=== PATIENT | male | born 1975 | race African-American/Black ===

== ENCOUNTER 2018-01-03 01:52 | Inpatient (IN) | payer OTHER ==
[~2018-01-03] VITALS: Ht 180.3 cm; Wt 84.8 kg
[2018-01-03 02:45] LABS: CALCIUM, SERUM 7.7 mg/dL (8.5-10.1); POTASSIUM 3.3 mmol/L (3.5-5.1)
[2018-01-03 02:53] LABS: TROPONIN I 0.041 ng/mL (0.00-0.056)
[2018-01-03 03:17] LABS: BASOPHILS # (AUTO) 0.1 /CMM (0.0-0.2); EOSINOPHILS % (AUTO) 2.6 % (0.0-6.0); HEMATOCRIT 45 % (39-51); LYMPHOCYTES # (AUTO) 2.1 /CMM (0.8-4.8); LYMPHOCYTES % (AUTO) 40.4 % (20.0-44.0); MEAN CORPUSCULAR HEMOGLOBIN 26 PG (26.0-33.0); MEAN CORPUSCULAR HGB CONC 31 g/dl (31.0-36.0); MEAN CORPUSCULAR VOLUME 83 fL (80-96); MONOCYTES # (AUTO) 1.1 /CMM (0.1-1.30); NEUTROPHILS # (AUTO) 1.8 /CMM (1.8-8.9); PLATELET COUNT (AUTO) 184 /CMM (150-450); RED BLOOD CELL COUNT(AUTO) 5.48 MIL/uL (4.5-6.0); WHITE BLOOD COUNT (AUTO) 5.2 K/uL (4.3-11.0)
[2018-01-03 03:51] LABS: LYMPHOCYTES % (MANUAL) 48 % (16-48); MONOCYTES % (MANUAL) 15 % (0-11.0); NEUTROPHILS % (MANUAL) 34 (42-76)
[2018-01-03 03:52] LABS: EOSINOPHILS % (MANUAL) 3 % (0-4)
[2018-01-03] MEDS ORDERED: FUROSEMIDE 40 MG/4 ML VIAL ONE (04:58)
[2018-01-03] MEDS ORDERED: FUROSEMIDE 40 MG/4 ML VIAL IV ONE (05:00)
[2018-01-03] MEDS ORDERED: ASPIRIN EC 325 MG TABLET.DR PO ONE ×2 (05:30)
[2018-01-03] MEDS ORDERED: CARV3.122 PO (05:42)
[2018-01-03] MEDS ORDERED: SPIR25TA6 PO (05:42)
[2018-01-03] MEDS ORDERED: LORA1TAB PO (05:42)
[2018-01-03] MEDS ORDERED: FURO-144 PO (05:42)
[2018-01-03] MEDS ORDERED: LISI10TA5 PO (05:42)
[2018-01-03] MEDS ORDERED: GABA-534 PO (05:42)
[2018-01-03] MEDS ORDERED: MAGNESIUM HYDROXIDE 30 ML UDC PO PRN (06:30)
[2018-01-03] MEDS ORDERED: MORPHINE SULFATE INJ 2 MG/ML DISP.SYRIN IV PRN (06:30)
[2018-01-03] MEDS ORDERED: LORAZEPAM 1 MG TABLET PO PRN (06:30)
[2018-01-03] MEDS ORDERED: Z GUARD REMEDY 2 OZ OINT TP PRN (06:30)
[2018-01-03] MEDS ORDERED: POTASSIUM CHLORIDE 20 MEQ TAB.PRT.SR PO ONE ×2 (06:30→08:00)
[2018-01-03] MEDS ORDERED: ONDANSETRON HCL/PF 4 MG/2 ML VIAL IVP PRN (06:30)
[2018-01-03] MEDS ORDERED: ZOLPIDEM TARTRATE 5 MG TABLET PO PRN (06:30)
[2018-01-03] MEDS ORDERED: ACETAMINOPHEN 325 MG TABLET PO PRN (06:30)
[2018-01-03] MEDS ORDERED: ENOXAPARIN SODIUM 40 MG/0.4 ML DISP.SYRIN SQ SCH (06:30)
[2018-01-03 07:05] VITALS: BP 103/69
[2018-01-03 08:00] VITALS: BP 99/66
[2018-01-03] MEDS ORDERED: BUMETANIDE INJ 4 MG in IV NS 0.9% 24 ML IV ONE (08:00)
[2018-01-03] MEDS: ENOXAPARIN SODIUM 40 MG/0.4 ML DISP.SYRIN SQ SCH (08:28)
[2018-01-03] MEDS: CARVEDILOL 3.125 MG TABLET PO SCH ×2 (08:29→20:30)
[2018-01-03] MEDS: SPIRONOLACTONE 25 MG TABLET PO SCH (08:30)
[2018-01-03] MEDS: LISINOPRIL (10MG) 10 MG TABLET PO SCH (08:30)
[2018-01-03] MEDS: FUROSEMIDE 40 MG TABLET PO SCH ×2 (08:30→16:51)
[2018-01-03] MEDS ORDERED: ASPIRIN EC 325 MG TABLET.DR PO SCH (09:00)
[2018-01-03 12:00] VITALS: BP 118/69
[2018-01-03] MEDS: MORPHINE SULFATE INJ 4 MG/ML DISP.SYRIN IV PRN ×3 (15:29→22:15)
[2018-01-03 16:00] VITALS: BP 108/73
[2018-01-03 16:38] LABS: APPEARANCE,URINE CLEAR (CLEAR); BILIRUBIN,URINE NEGATIVE (NEGATIVE); BLOOD, URINE NEGATIVE Ery/uL (NEGATIVE); COLOR,URINE YELLOW (YELLOW); KETONES,URINE NEGATIVE (NEGATIVE); LEUKOCYTE ESTERASE ,URINE NEGATIVE (NEGATIVE); NITRITE, URINE NEGATIVE (NEGATIVE); PROTEIN,URINE NEGATIVE (NEGATIVE); UGLUCOSE NEGATIVE (NEGATIVE)
[2018-01-03 20:00] VITALS: BP 108/67
[2018-01-03 20:15] VITALS: BP 108/67
[2018-01-03] MEDS: GABAPENTIN 300 MG CAPSULE PO SCH (22:20)
[2018-01-04 00:14] VITALS: BP 111/69
[2018-01-04] MEDS: MORPHINE SULFATE INJ 4 MG/ML DISP.SYRIN IV PRN ×4 (00:41→20:29)
[2018-01-04 04:00] VITALS: BP 115/85
[2018-01-04 06:30] LABS: BASOPHILS % (AUTO) 0.7 % (0.0-2.0); EOSINOPHILS % (AUTO) 4.3 % (0.0-6.0); HEMATOCRIT 46 % (39-51); HEMOGLOBIN 14.2 g/dL (13.5-17.5); LYMPHOCYTES # (AUTO) 1.9 /CMM (0.8-4.8); LYMPHOCYTES % (AUTO) 34.6 % (20.0-44.0); MEAN CORPUSCULAR HEMOGLOBIN 26 PG (26.0-33.0); MEAN CORPUSCULAR HGB CONC 31 g/dl (31.0-36.0); MEAN CORPUSCULAR VOLUME 85 fL (80-96); MONOCYTES # (AUTO) 1.1 /CMM (0.1-1.30); NEUTROPHILS # (AUTO) 2.3 /CMM (1.8-8.9); NEUTROPHILS % (AUTO) 41.4 % (43.0-81.0); PLATELET COUNT (AUTO) 184 /CMM (150-450); RDW COEFFICIENT OF VARIATION 19.6 (11.5-15.0); RED BLOOD CELL COUNT(AUTO) 5.45 MIL/uL (4.5-6.0); WHITE BLOOD COUNT (AUTO) 5.6 K/uL (4.3-11.0)
[2018-01-04 06:37] LABS: CALCIUM, SERUM 8.1 mg/dL (8.5-10.1); CREATININE 0.8 mg/dL (0.6-1.3); MAGNESIUM 1.8 mg/dL (1.8-2.4); PHOSPHORUS 4.6 mg/dL (2.5-4.9); POTASSIUM 4.2 mmol/L (3.5-5.1)
[2018-01-04 08:00] VITALS: BP 111/73
[2018-01-04] MEDS: ENOXAPARIN SODIUM 40 MG/0.4 ML DISP.SYRIN SQ SCH (08:39)
[2018-01-04] MEDS: SPIRONOLACTONE 25 MG TABLET PO SCH (08:40)
[2018-01-04] MEDS: CARVEDILOL 3.125 MG TABLET PO SCH ×2 (08:40→21:00)
[2018-01-04] MEDS: LISINOPRIL (10MG) 10 MG TABLET PO SCH ×2 (08:40→09:00)
[2018-01-04] MEDS: FUROSEMIDE 40 MG TABLET PO SCH ×2 (08:40→16:10)
[2018-01-04] MEDS: ASPIRIN EC 81 MG TABLET.DR PO SCH (08:41)
[2018-01-04 09:35] LABS: EOSINOPHILS % (MANUAL) 2 % (0-4); LYMPHOCYTES % (MANUAL) 31 % (16-48); MONOCYTES % (MANUAL) 15 % (0-11.0); NEUTROPHILS % (MANUAL) 52 (42-76)
[2018-01-04 12:00] VITALS: BP 131/75
[2018-01-04 16:00] VITALS: BP 104/58
[2018-01-04] MEDS ORDERED: ASPI-1152 PO (17:01)
[2018-01-04 20:00] VITALS: BP 106/69
[2018-01-04] MEDS: GABAPENTIN 300 MG CAPSULE PO SCH (22:00)
[2018-01-05] VITALS: BP 108/61
[2018-01-05 04:00] VITALS: BP 101/67
[2018-01-05] MEDS: MORPHINE SULFATE INJ 4 MG/ML DISP.SYRIN IV PRN (05:35)
[2018-01-05 07:16] LABS: CALCIUM, SERUM 8.6 mg/dL (8.5-10.1); POTASSIUM 4.7 mmol/L (3.5-5.1)
[2018-01-05 07:17] LABS: BASOPHILS % (AUTO) 0.8 % (0.0-2.0); EOSINOPHILS % (AUTO) 5.3 % (0.0-6.0); HEMATOCRIT 46 % (39-51); HEMOGLOBIN 14.1 g/dL (13.5-17.5); LYMPHOCYTES # (AUTO) 1.8 /CMM (0.8-4.8); MEAN CORPUSCULAR HEMOGLOBIN 26 PG (26.0-33.0); MEAN CORPUSCULAR HGB CONC 31 g/dl (31.0-36.0); MEAN CORPUSCULAR VOLUME 86 fL (80-96); MONOCYTES # (AUTO) 0.9 /CMM (0.1-1.30); NEUTROPHILS # (AUTO) 2.4 /CMM (1.8-8.9); NEUTROPHILS % (AUTO) 43.9 % (43.0-81.0); PLATELET COUNT (AUTO) 184 /CMM (150-450); RED BLOOD CELL COUNT(AUTO) 5.36 MIL/uL (4.5-6.0); WHITE BLOOD COUNT (AUTO) 5.4 K/uL (4.3-11.0)
[2018-01-05 08:00] VITALS: BP 109/73
[2018-01-05 09:00] VITALS: BP 109/73
[2018-01-05] MEDS: ASPIRIN EC 81 MG TABLET.DR PO SCH (09:00)
[2018-01-05] MEDS: SPIRONOLACTONE 25 MG TABLET PO SCH (09:00)
[2018-01-05] MEDS: ENOXAPARIN SODIUM 40 MG/0.4 ML DISP.SYRIN SQ SCH (09:00)
[2018-01-05] MEDS: CARVEDILOL 3.125 MG TABLET PO SCH (09:00)
[2018-01-05] MEDS: FUROSEMIDE 40 MG TABLET PO SCH (09:00)
[2018-01-05] MEDS: LISINOPRIL (10MG) 10 MG TABLET PO SCH (09:00)
[2018-01-05 09:20] LABS: EOSINOPHILS % (MANUAL) 5 % (0-4); LYMPHOCYTES % (MANUAL) 31 % (16-48); MONOCYTES % (MANUAL) 10 % (0-11.0); NEUTROPHILS % (MANUAL) 54 (42-76)
== END 2018-01-05 10:40 | disposition home or self-care (01) | DRG 205 ==
LOC: ER 01:53 → TELE 05:57
PROVIDERS: ADMIT Nurse Practitioner Acute Care; ATTEND Registered Nurse
DX: I42.0 Dilated cardiomyopathy (principal); I50.23 Acute on chronic systolic (congestive) heart failure; E83.51 Hypocalcemia; E87.1 Hypo-osmolality and hyponatremia; I11.0 Hypertensive heart disease with heart failure; I42.9 Cardiomyopathy, unspecified; J44.0 Chronic obstructive pulmonary disease with (acute) lower respiratory infection; E87.6 Hypokalemia; E87.5 Hyperkalemia; Z59.0 Homelessness; Z91.19 Patient's noncompliance with other medical treatment and regimen; Z87.01 Personal history of pneumonia (recurrent); F43.20 Adjustment disorder, unspecified; F14.21 Cocaine dependence, in remission
CPT/HCPCS: 36415; 71045-TC; 80048-TC; 80061-TC; 81000-TC; 83735-TC; 83880; 84100-TC; 84484-TC; 85025-TC; 87081-TC; 93307-TC; A4606; J1650; J1940; J2270; J2405; J3490; J7030; Z7610

== ENCOUNTER 2019-05-24 18:11 | Inpatient (IN) | payer OTHER ==
[~2019-05-24] VITALS: Ht 180.3 cm; Wt 100.7 kg
[~2019-05-24 18:11] MED LIST: ASPI-1152 PO; CARV3.122 PO; FURO-144 PO; GABA-534 PO; LISI10TA5 PO; LORA1TAB PO; SPIR25TA6 PO
[2019-05-24] MEDS ORDERED: ASPIRIN 81 MG TAB.CHEW PO ONE (19:30)
--- NOTE | 2019-05-24 19:30 | NUR ---
PT REQUESTED A URINAL. URINAL WAS GIVEN.
[2019-05-24] MEDS ORDERED: ASPIRIN 81 MG TAB.CHEW ONE (19:31)
--- NOTE | 2019-05-24 19:33 | NUR ---
CXR IN PROGRESS AT THE BEDSIDE.
--- NOTE | 2019-05-24 19:33 | NUR ---
DOUBLE BACK OPERATOR IS AT THE BEDSIDE FOR BLOOD DRAW.
[2019-05-24 19:39] LABS: BASOPHILS # (AUTO) 0.1 /CMM (0.0-0.2); BASOPHILS % (AUTO) 1.4 % (0.0-2.0); EOSINOPHILS % (AUTO) 3.1 % (0.0-6.0); HEMATOCRIT 42 % (39-51); HEMOGLOBIN 13.2 g/dL (13.5-17.5); LYMPHOCYTES # (AUTO) 1.6 /CMM (0.8-4.8); MEAN CORPUSCULAR HGB CONC 32 g/dl (31.0-36.0); MEAN CORPUSCULAR VOLUME 81 fL (80-96); MONOCYTES # (AUTO) 0.8 /CMM (0.1-1.30); MONOCYTES % (AUTO) 15.5 % (2.0-12.0); NEUTROPHILS # (AUTO) 2.6 /CMM (1.8-8.9); PLATELET COUNT (AUTO) 183 /CMM (150-450); RED BLOOD CELL COUNT(AUTO) 5.19 MIL/uL (4.5-6.0); WHITE BLOOD COUNT (AUTO) 5.2 K/uL (4.3-11.0)
--- NOTE | 2019-05-24 19:40 | NUR ---
PT REQUESTED AND REC'D A URINAL.
[2019-05-24 19:45] LABS: CALCIUM, SERUM 8.2 mg/dL (8.5-10.1); CREATININE 1.4 mg/dL (0.6-1.3); POTASSIUM 3.2 mmol/L (3.5-5.1)
[2019-05-24 20:23] LABS: LYMPHOCYTES % (MANUAL) 30 % (16-48)
[2019-05-24 20:25] LABS: MONOCYTES % (MANUAL) 16 % (0-11.0)
[2019-05-24 20:26] LABS: NEUTROPHILS % (MANUAL) 54 (42-76)
[2019-05-24] MEDS ORDERED: FUROSEMIDE 20 MG/2 ML VIAL ONE (20:27)
[2019-05-24] MEDS ORDERED: POTASSIUM CHLORIDE 20 MEQ TAB.PRT.SR PO ONE ×3 (20:27→20:33)
[2019-05-24] MEDS ORDERED: FUROSEMIDE 40 MG/4 ML VIAL ONE (20:27)
[2019-05-24] MEDS ORDERED: FUROSEMIDE 40 MG/4 ML VIAL IV ONE (20:30)
[2019-05-24] MEDS ORDERED: clonazePAM 1 MG TABLET ONE (20:35)
--- NOTE | 2019-05-24 20:41 | NUR ---
VERBAL ORDER FROM Keven CASILLAS PA-C FOR KLONOPIN 1MG PO.
--- NOTE | 2019-05-24 20:42 | NUR ---
[facility] was paged for panel call
[2019-05-24] MEDS ORDERED: clonazePAM 1 MG TABLET PO ONE (21:00)
--- NOTE | 2019-05-24 21:29 | NUR ---
VERBAL AUTH TO KEEP PT VIA DESKTOP PUBLISHER
[2019-05-24] MEDS ORDERED: GUAIFENESIN/D-METHORPHAN HB 5 ML UDC PO ONE (21:30)
--- NOTE | 2019-05-24 21:30 | NUR ---
PAGED [email or web address] FOR PANEL CALL
[2019-05-24] MEDS ORDERED: GUAIFENESIN/D-METHORPHAN HB 5 ML UDC ONE (21:31)
--- NOTE | 2019-05-24 21:33 | NUR ---
CALLED RN SUP FOR TELE BED
--- NOTE | 2019-05-24 21:50 | NUR ---
PT IS C/O BRONCHOSPASM. PT REC'D COUGH MEDICATION @ APPROX 2130. PT IS ABLE TO SPEAK IN FULL SENTENCES AND O2 SAT IS 98% ON RA.
--- NOTE | 2019-05-24 21:54 | NUR ---
still waiting for bed assignment
--- NOTE | 2019-05-24 22:02 | NUR ---
Mc MAKI NP IS AT THE BEDSIDE.
--- NOTE | 2019-05-24 22:07 | NUR ---
CALLING REPORT TO TELE NURSE.
[2019-05-24] MEDS ORDERED: ACETAMINOPHEN 325 MG TABLET PO PRN (22:30)
[2019-05-24] MEDS ORDERED: MAGNESIUM HYDROXIDE 30 ML UDC PO PRN (22:30)
[2019-05-24] MEDS ORDERED: HYDROCODONE/APAP 5/325MG 1 EACH TABLET PO PRN (22:30)
[2019-05-24] MEDS ORDERED: MAG HYDROX/AL HYDROX/SIMETH 30 ML UDC PO PRN (22:30)
[2019-05-24] MEDS ORDERED: LORAZEPAM 1 MG TABLET PO PRN (22:30)
[2019-05-24] MEDS ORDERED: Z GUARD REMEDY 2 OZ OINT TP PRN (22:30)
[2019-05-24 22:40] VITALS: BP 139/78
--- NOTE | 2019-05-24 23:00 | NUR ---
RN NOTES ADMITTED PATIENT FROM ER, TRANSPORTED VIA GURNEY, ALERT ORIENTED X 4, FEELING SO SLEEPY AT THIS TIME, DENIES ANY PAIN OR DISCOMFORT, ASKING FOR SOMETHING TO EAT OR A SNACK, INITIAL ASSESSMENT INITIATED, ADMISSION PROCESS STARTED, PATIENT RESPONDS TO QUESTIONS BUT REQUESTING TO LET HIM REST AND SLEEP, SAFETY MEASURES INPLACE, ASPIRATION PRECAUTION EMPHASIZED, CALL LIGHT WITHIN EASY REACH, ORIENTED TO UNIT, PERSONAL BELONGINGS ACCOUNTED FOR, REPOSITIONED FOR COMFORT, BED IN LOW LOCKED POSITION. REFUSED THOROUGH SKIN ASSESSMENT AT THIS TIME, SKIN INTACT, ALL NEEDS ANTICIPATED CONNECTED TO TELE MONITOR, READ SINUS WITH PVCs. WILL CONTINUE TO MONITOR ACCORDINGLY.
[2019-05-24 23:05] VITALS: BP 139/78
--- NOTE | 2019-05-24 23:10 | NUR ---
RN NOTES PATIENT WANTED TO TALK TO THE CHARGE NURSE.
[2019-05-24 23:11] LABS: ALBUMIN 2.8 g/dL (3.4-5.0); BILIRUBIN,DIRECT 0.5 mg/dL (0.0-0.2); TOTAL PROTEIN, SERUM 6.2 g/dL (6.4-8.2)
--- NOTE | 2019-05-24 23:15 | NUR ---
RN NOTES PATIENT IS REQUESTING TO HAVE A PRIVATE ROOM PER CHARGE NURSE DENIA, WILL FOLLOW UP ONCE THERE IS ROOM AVAILABLE.
[2019-05-24] MEDS: ENOXAPARIN SODIUM 40 MG/0.4 ML DISP.SYRIN SQ SCH (23:20)
--- NOTE | 2019-05-25 06:14 | NUR ---
RN NOTES ALL NEEDS ATTENDED AND MET, PATIENT STATES THAT " I AM HAVING PANIC ATTACK AT THIS TIME," VERBALIZED BY PATIENT, PATIENT INSISTING TO TALK TO CHARGE NURSE.
--- NOTE | 2019-05-25 06:32 | NUR ---
RN NOTES PATIENT IS YELLING AND SCREAMING, AT THIS TIME INSISTING TO HAVE KLONOPIN FOR HIS PANIC ATTACK. CALLING [employer] ATHIS TIME TO INFORM CHARISSE STEIN REGARDING PATIENTS CURRENT CONDITION.
--- NOTE | 2019-05-25 06:55 | NUR ---
RN NOTES PATIENT IS YELLING AND SCREAMING, AGGRESSIVE TO STAFF. DOESN'T WANT MALE STAFF NURSE. ACCUSATORY AND VERY AGGRESSIVE. AWAITING FOR RETURN CALL FROM CHARISSE STEIN.
--- NOTE | 2019-05-25 07:00 | NUR ---
GUN SEALING MACHINE OPERATOR NOTES PT NOTED VERBALLY ABUSIVE AND AGGRESSIVE. HELPED PT MULTIPLE TIMES THROUGHOUT SHIFT WHEN PT NEEDED IT INCLUDING SNACKS, ICE CHIPS, AND JUICE WELL WHAT I COULD TO MAKE PT STAY EASIER. PT CONTINUED TO BE ABUSIVE AND ACCUSATORY AND MANIPULATIVE. PT ALSO THREATENING STAFF. ATTEMPTED MANY TIMES TO EXPLAIN SITUATION WELL CALM THE SITUATION AND PT REFUSED TO HAVE THAT HAPPEN. PT CONTINUE TO YELL, BE VERBALLY ABUSIVE, THREATENING, AND AGGRESSIVE. CHARGE NURSE MADE AWARE.
--- NOTE | 2019-05-25 07:00 | NUR ---
Tele/RN Opening Note Received patient in bed, AO x 4, able to responds all stimuli. Pt. does no appears pain or any discomfort. Skin is warm to touch, clean/dry. Kept lower bed of position with elevated HOB. No s/s of respiratory distress, pt removed oxygen tube. Will continue to monitor.
[2019-05-25 08:00] VITALS: BP 119/82
[2019-05-25 08:21] LABS: BASOPHILS % (AUTO) 0.8 % (0.0-2.0); EOSINOPHILS % (AUTO) 4.5 % (0.0-6.0); HEMATOCRIT 45 % (39-51); HEMOGLOBIN 13.9 g/dL (13.5-17.5); LYMPHOCYTES # (AUTO) 1.6 /CMM (0.8-4.8); LYMPHOCYTES % (AUTO) 26.8 % (20.0-44.0); MEAN CORPUSCULAR HGB CONC 31 g/dl (31.0-36.0); MEAN CORPUSCULAR VOLUME 81 fL (80-96); MONOCYTES # (AUTO) 0.9 /CMM (0.1-1.30); NEUTROPHILS # (AUTO) 3.1 /CMM (1.8-8.9); NEUTROPHILS % (AUTO) 52.9 % (43.0-81.0); PLATELET COUNT (AUTO) 192 /CMM (150-450); RED BLOOD CELL COUNT(AUTO) 5.53 MIL/uL (4.5-6.0); WHITE BLOOD COUNT (AUTO) 5.9 K/uL (4.3-11.0)
[2019-05-25 08:36] LABS: CALCIUM, SERUM 8.3 mg/dL (8.5-10.1); CREATININE 1.4 mg/dL (0.6-1.3); MAGNESIUM 1.7 mg/dL (1.8-2.4); POTASSIUM 3.7 mmol/L (3.5-5.1)
[2019-05-25 08:39] LABS: THYROID STIMULATING HORMONE 4.021 uIU/mL (0.358-3.74)
[2019-05-25] MEDS: LISINOPRIL (10MG) 10 MG TABLET PO SCH (08:51)
[2019-05-25] MEDS: CARVEDILOL 3.125 MG TABLET PO SCH ×2 (08:51→17:54)
[2019-05-25] MEDS: ASPIRIN EC 81 MG TABLET.DR PO SCH (08:51)
[2019-05-25] MEDS: LEVOFLOXACIN (500MG) 500 MG TABLET PO SCH (08:52)
[2019-05-25] MEDS: SPIRONOLACTONE 25 MG TABLET PO SCH (08:52)
[2019-05-25] MEDS ORDERED: LEVALBUTEROL HCL NEB 1.25 MG/0.5 ML VIAL.NEB IH SCH (09:00)
[2019-05-25] MEDS ORDERED: FUROSEMIDE 40 MG TABLET PO SCH (09:00)
[2019-05-25] MEDS: POTASSIUM CHLORIDE 20 MEQ TAB.PRT.SR PO SCH ×3 (09:21→11:36)
[2019-05-25] MEDS: METOLAZONE 2.5 MG TABLET PO SCH (09:22)
[2019-05-25] MEDS: FUROSEMIDE 100 MG/10 ML VIAL IV SCH ×3 (09:53→17:54)
[2019-05-25 09:54] VITALS: BP 110/80
[2019-05-25 10:06] LABS: THYROID STIMULATING HORMONE 4.082 uIU/mL (0.358-3.74)
[2019-05-25 10:08] LABS: MAGNESIUM 1.8 mg/dL (1.8-2.4)
[2019-05-25] MEDS: Magnesium 1GM/D5W 100ML PREMIX 100 ML IV SCH ×2 (11:36→11:50)
[2019-05-25] MEDS: ALBUTEROL FS 2.5 MG/0.5 ML VIAL.NEB NEB SCH ×2 (14:00→19:30)
[2019-05-25 16:00] VITALS: BP 101/76
--- NOTE | 2019-05-25 16:08 | NUR ---
Social service consult requested by JULAI Mattson for homelessness. Per chart review and MD notes, pt. is a 44 her old male with a history of systolic heart failure and ejection fraction of 10-15%, anxiety, chronic back pain, COPD, hypertension and who presented to the ER complaining of shortness of breath. CLEANER AND PRESSER met with the pt bedside. Pt is alert and oriented x 4. Pt. is pleasant with CLEANER AND PRESSER during the assessment. Pt's mood is congruent. Pt. is on a cardiac diet and appears to want to change his diet. Pt. has been informed several times by his RN Fanta that she has to notify his doctor regarding a change in diet request. Pt states he is residing at a facility located at [address] [place] [address] in [place] under [facility]. Pt is unable to provide information for [facility]. Pt. states his placement is funded by [facility] ([facility] His placement has been funded until the June 08, 2019. Pt receives food stamps and $400 in SSI per month. Pt has a psychiatric diagnosis of Anxiety and takes Klonopin. Pt. denies suicidal and homicidal ideations and visual/auditory hallucinations at this time. Pt. has history of one psychiatric hospitalization. Pt's emergency contact is his father Saleem Curtis . CLEANER AND PRESSER updated EMILY Benito and binder caser Sheila with aforementioned information. No other social service needs are requested at this time.
[2019-05-25] MEDS ORDERED: BENZONATATE 100 MG CAPSULE PO PRN (17:00)
[2019-05-25] MEDS ORDERED: BENZONATATE 100 MG CAPSULE PO SCH (17:00)
[2019-05-25] MEDS: GUAIFENESIN/D-METHORPHAN HB 5 ML UDC PO PRN (17:54)
--- NOTE | 2019-05-25 18:30 | NUR ---
Tele/RN Closing Note Patient in bed comfortably, no appears pain or any discomfort. No s/s of respiratory distress, kept lower bed position with elevated HOB. Skin is warm to touch, clean/dry, intact IV site. Call light within reach, will endorse night order selector.
--- NOTE | 2019-05-25 19:05 | NUR ---
WEB WEAVER NOTE RECEIVED PT IN STABLE CONDITION A/O X4, NOTED RESTING IN BED, NO SIGNS OF SOB OR DISTRESS, NO C/O PAIN OR N/V. TELE MONITOR: SR W/ ELEVATED T WAVE 87. IV IN RFA #[address], S/L. ALL CURRENT NEEDS ATTENDED TO. BED LOW, LOCKED, UPPER RAILS UP, AND CALL LIGHT WITHIN REACH. WILL CONT. TO MONITOR.
[2019-05-25 20:00] VITALS: BP 89/55
[2019-05-25] MEDS: GABAPENTIN 300 MG CAPSULE PO SCH (21:22)
[2019-05-25] MEDS: ENOXAPARIN SODIUM 40 MG/0.4 ML DISP.SYRIN SQ SCH (23:11)
[2019-05-26] VITALS: BP 106/65
[2019-05-26] MEDS: ALBUTEROL FS 2.5 MG/0.5 ML VIAL.NEB NEB SCH ×4 (01:09→18:58)
[2019-05-26 04:00] VITALS: BP 97/63
--- NOTE | 2019-05-26 06:16 | NUR ---
STOPPER GRINDER NOTE PT REMAINS IN STABLE CONDITION A/O X4, NOTED RESTING IN BED, NO SIGNS OF SOB OR DISTRESS, NO C/O PAIN OR N/V. TELE MONITOR: SR W/ ELEVATED T WAVE 77. IV IN RFA #[address], S/L. ALL CURRENT NEEDS ATTENDED TO. BED LOW, LOCKED, UPPER RAILS UP, AND CALL LIGHT WITHIN REACH. WILL CONT. TO MONITOR AND ENDORSE TO NEXT SHIFT FOR JORDEN.
--- NOTE | 2019-05-26 06:30 | NUR ---
ACQUISITION COST ESTIMATOR NOTE PT REFUSING AM LABS, RISKS AND BENEFITS MADE AWARE, WITH VERBALIZATION OF UNDERSTANDING.
[2019-05-26 07:49] LABS: BASOPHILS # (AUTO) 0.1 /CMM (0.0-0.2); BASOPHILS % (AUTO) 1.1 % (0.0-2.0); EOSINOPHILS % (AUTO) 4.7 % (0.0-6.0); HEMATOCRIT 43 % (39-51); HEMOGLOBIN 13.7 g/dL (13.5-17.5); LYMPHOCYTES # (AUTO) 1.5 /CMM (0.8-4.8); LYMPHOCYTES % (AUTO) 25.1 % (20.0-44.0); MEAN CORPUSCULAR HGB CONC 32 g/dl (31.0-36.0); MEAN CORPUSCULAR VOLUME 80 fL (80-96); MONOCYTES # (AUTO) 0.8 /CMM (0.1-1.30); MONOCYTES % (AUTO) 12.9 % (2.0-12.0); NEUTROPHILS # (AUTO) 3.4 /CMM (1.8-8.9); NEUTROPHILS % (AUTO) 56.2 % (43.0-81.0); PLATELET COUNT (AUTO) 199 /CMM (150-450)
[2019-05-26 08:00] VITALS: BP_SYST 103; BP_DIAS 68; BP_DIAS 69
[2019-05-26] MEDS: FUROSEMIDE 100 MG/10 ML VIAL IV SCH ×3 (08:39→16:52)
[2019-05-26] MEDS: LISINOPRIL (10MG) 10 MG TABLET PO SCH (08:40)
[2019-05-26] MEDS: ASPIRIN EC 81 MG TABLET.DR PO SCH (08:40)
[2019-05-26] MEDS: LEVOFLOXACIN (500MG) 500 MG TABLET PO SCH (08:40)
[2019-05-26] MEDS: METOLAZONE 2.5 MG TABLET PO SCH (08:40)
[2019-05-26] MEDS: CARVEDILOL 3.125 MG TABLET PO SCH ×2 (08:40→16:52)
[2019-05-26] MEDS: SPIRONOLACTONE 25 MG TABLET PO SCH (08:41)
[2019-05-26 09:04] LABS: ALBUMIN 2.5 g/dL (3.4-5.0); BILIRUBIN,TOTAL 1.6 mg/dL (0.2-1.0); CALCIUM, SERUM 8.4 mg/dL (8.5-10.1); CREATININE 1.3 mg/dL (0.6-1.3); MAGNESIUM 1.7 mg/dL (1.8-2.4); PHOSPHORUS 3.9 mg/dL (2.5-4.9); POTASSIUM 3.6 mmol/L (3.5-5.1); TOTAL PROTEIN, SERUM 6.2 g/dL (6.4-8.2)
[2019-05-26] MEDS ORDERED: Magnesium 1GM/D5W 100ML PREMIX 100 ML IV SCH (10:30)
--- NOTE | 2019-05-26 14:01 | NUR ---
Patient requested PRN [place].; [place] administrated as ordered
[2019-05-26 16:00] VITALS: BP 98/42
--- NOTE | 2019-05-26 19:02 | NUR ---
Patient Awake a/o x3 , VS are stable and at baseline. All nursing care provided. Patient kept comfortable and safety measures in place, call light within reach. IV line remains intact and patent. Diet changed per . Plan of care discussed . Will endorse to next shift for JORDEN
[2019-05-26 20:00] VITALS: BP 95/62
[2019-05-26] MEDS: clonazePAM 0.5 MG TABLET PO PRN (20:04)
--- NOTE | 2019-05-26 20:43 | NUR ---
MS RN OPENING NOTES PATIENT RECEIVED RESTING N BED A/O x4, AGITATED. STABLE ON RA WITH BREATHING EVEN AND UNLABORED, NO SOB NOTED. NO SIGNS OF ACUTE DISTRESS. NO CURRENT COMPLAINTS OF PAIN OR DISCOMFORT. IV LOCATED ON R FA #18 S/L. SAFETY PRECAUTIONS IN PLACE WITH BED IN LOWEST POSITION, LOCKED, BREAKS ON, AND CALL LIGHT WITHIN REACH. WILL CONTINUE TO MONITOR.
--- NOTE | 2019-05-26 21:10 | NUR ---
MS RN NOTE PATIENT REQUESTED FOR KLONOPIN PRN, CLAIMED HE WAS FEELING ANXIOUS. ADMINISTERED 0.5 MG. WILL CONTINUE TO MONITOR.
[2019-05-26] MEDS: GABAPENTIN 300 MG CAPSULE PO SCH (22:11)
[2019-05-26 22:16] VITALS: BP 95/62
[2019-05-26] MEDS: ENOXAPARIN SODIUM 40 MG/0.4 ML DISP.SYRIN SQ SCH (22:16)
--- NOTE | 2019-05-26 22:16 | NUR ---
MS RN NOTE PATIENT REFUSED ENOXAPARIN. EDUCATED PATIENT- BUT STILL REFUSED. WILL CONTINUE TO MONITOR.
[2019-05-27] MEDS: ALBUTEROL FS 2.5 MG/0.5 ML VIAL.NEB NEB SCH ×4 (01:30→19:30)
--- NOTE | 2019-05-27 06:35 | NUR ---
MS RN CLOSING NOTES PATIENT IS CURRENTLY RESTING IN BED A/O X4, EASILY AGITATED ALL NIGHT. PATIENT IS STABLE ON RA WITH BREATHING EVEN AND UNLABORED, NO SOB NOTED. NO APPARENT ACUTE DISTRESS. NO CURRENT COMPLAINTS OF PAIN OR DISCOMFORT. IV LOCATED ON R FA #18. ALL NEEDS WERE ATTENDED TO THROUGHOUT THE NIGHT AND PATIENT WAS KEPT CLEAN AND DRY SAFETY PRECAUTIONS IN PLACE WITH BED IN LOWEST POSITION, BREAKS ON, SIDERAILS UP X2, AND CALL LIGHT WITHIN REACH. WILL ENDORSE TO ONCOMING SHIFT ABOUT JORDEN.
[2019-05-27 08:00] VITALS: BP 105/73
--- NOTE | 2019-05-27 08:00 | NUR ---
MS/RN OPENING NOTES PATIENT IS CURRENTLY RESTING IN BED A/O X4. PATIENT IS STABLE ON RA WITH BREATHING EVEN AND UNLABORED, NO SOB NOTED. NO APPARENT ACUTE DISTRESS. NO CURRENT COMPLAINTS OF PAIN OR DISCOMFORT. IV LOCATED ON R FA #18. KEPT CLEAN AND DRY SAFETY PRECAUTIONS IN PLACE WITH BED IN LOWEST POSITION, BREAKS ON, SIDE RAILS UP X2, AND CALL LIGHT WITHIN REACH. WILL CONTINUE TO MONITOR.
[2019-05-27 08:09] LABS: BASOPHILS # (AUTO) 0.1 /CMM (0.0-0.2); BASOPHILS % (AUTO) 1.4 % (0.0-2.0); EOSINOPHILS % (AUTO) 6.3 % (0.0-6.0); HEMATOCRIT 52 % (39-51); HEMOGLOBIN 16.4 g/dL (13.5-17.5); LYMPHOCYTES # (AUTO) 1.8 /CMM (0.8-4.8); LYMPHOCYTES % (AUTO) 28.3 % (20.0-44.0); MEAN CORPUSCULAR HGB CONC 32 g/dl (31.0-36.0); MEAN CORPUSCULAR VOLUME 80 fL (80-96); MONOCYTES # (AUTO) 0.9 /CMM (0.1-1.30); MONOCYTES % (AUTO) 14.5 % (2.0-12.0); NEUTROPHILS # (AUTO) 3.1 /CMM (1.8-8.9); NEUTROPHILS % (AUTO) 49.5 % (43.0-81.0); PLATELET COUNT (AUTO) 246 /CMM (150-450); RED BLOOD CELL COUNT(AUTO) 6.52 MIL/uL (4.5-6.0); WHITE BLOOD COUNT (AUTO) 6.2 K/uL (4.3-11.0)
[2019-05-27 08:21] LABS: ALBUMIN 2.8 g/dL (3.4-5.0); BILIRUBIN,TOTAL 1.4 mg/dL (0.2-1.0); CALCIUM, SERUM 8.6 mg/dL (8.5-10.1); CREATININE 1.4 mg/dL (0.6-1.3); MAGNESIUM 1.9 mg/dL (1.8-2.4); PHOSPHORUS 4.6 mg/dL (2.5-4.9); POTASSIUM 3.7 mmol/L (3.5-5.1); TOTAL PROTEIN, SERUM 7.1 g/dL (6.4-8.2)
[2019-05-27] MEDS: CARVEDILOL 3.125 MG TABLET PO SCH ×2 (09:00→16:50)
[2019-05-27] MEDS ORDERED: HYDR-3972 PO (09:30)
[2019-05-27] MEDS ORDERED: GUAI5SYR PO (09:30)
[2019-05-27] MEDS ORDERED: ENOX40DI SQ (09:30)
[2019-05-27] MEDS ORDERED: ALBU2.5V13 NEB (09:30)
[2019-05-27] MEDS ORDERED: CLON0.5T4 PO (09:30)
[2019-05-27] MEDS ORDERED: DIVA125C2 PO (09:30)
[2019-05-27] MEDS ORDERED: POTA20TA83 PO (09:31)
[2019-05-27] MEDS ORDERED: MAG30ORA PO (09:31)
[2019-05-27] MEDS ORDERED: ONDA4VIA23 IVP (09:31)
[2019-05-27] MEDS ORDERED: METO2.5T7 PO (09:31)
[2019-05-27] MEDS ORDERED: MAGN400O6 PO (09:31)
[2019-05-27] MEDS: LEVOFLOXACIN (500MG) 500 MG TABLET PO SCH (09:56)
[2019-05-27] MEDS: METOLAZONE 2.5 MG TABLET PO SCH (09:57)
[2019-05-27] MEDS: SPIRONOLACTONE 25 MG TABLET PO SCH (09:57)
[2019-05-27] MEDS: ASPIRIN EC 81 MG TABLET.DR PO SCH (09:57)
[2019-05-27] MEDS: LISINOPRIL (10MG) 10 MG TABLET PO SCH (09:58)
[2019-05-27] MEDS: POTASSIUM CHLORIDE 20 MEQ TAB.PRT.SR PO SCH ×2 (10:12→11:59)
[2019-05-27] MEDS: clonazePAM 0.5 MG TABLET PO PRN (15:17)
[2019-05-27 16:00] VITALS: BP 102/64
--- NOTE | 2019-05-27 18:19 | NUR ---
MS/RN CLOSING NOTES PATIENT IS ALERT AND ORIENTED X4. DENIES PAIN AT THIS TIME. NO RESPIRATORY DISTRESS NOTED DURING THE SHIFT. ALL DUE PRESCRIBED WAS GIVEN. ALL PATIENT NEEDS WAS ATTENDED. SEEN AND EXAMINED BY MD WITH ORDERS NOTED AND CARRIED OUT. BED IN LOWEST POSITION AND LOCKED. SIDERAILS UP X2. CALL LIGHTS WITHIN REACH. WILL ENDORSED TO A/C TECH FOR CONTINUITY OF CARE
--- NOTE | 2019-05-27 19:00 | NUR ---
SHANTHI rojas opening notes Received Pt from morning nurse. Pt is alert and orientedX4. Pt is sitting in bed comfortably. Respiration is normal. no SOB. No S/S of distress noted. IV sites RFA# 18 is clean, intact, patent and SL. Safety precautions is maintained. Bed at low position, brakes locked, side rails upX3 and call light is within reach. Will endorse to morning nurse for JORDEN. Addendum: 05/28/19 at 0815 by BRYAN CALLAHAN RN Will continue to monitor
[2019-05-27 20:00] VITALS: BP 102/60
--- NOTE | 2019-05-27 20:53 | NUR ---
RN medsurg notes Pt is feeling anxious. Spoke with Dr. Mattson about anxiety meds. Per am nurse Pt received klonopin 0.5 mg/po. MD order ativan 0.5 mg/PO/one time. Vs is stable. Order carried out.
[2019-05-27] MEDS ORDERED: LORAZEPAM 0.5 MG TABLET PO PRN (21:00)
[2019-05-27] MEDS: GABAPENTIN 300 MG CAPSULE PO SCH (21:12)
[2019-05-27] MEDS: SENNOSIDES 8.6 MG TABLET PO SCH (21:12)
--- NOTE | 2019-05-27 21:13 | NUR ---
Rn medsurwendi notes Pt is feeling anxious. Administered ativan 0.5 mg/1 tab/PO/One time as ordered for anxiety. VS is stable. Safety precautions is maintained. Will continue to monitor.
[2019-05-27] MEDS: ENOXAPARIN SODIUM 40 MG/0.4 ML DISP.SYRIN SQ SCH (22:46)
--- NOTE | 2019-05-27 22:46 | NUR ---
RN medsurg notes Pt refused lovenox 40mg/SQ. Made aware risks and benefits. Pt keep refusing. Will continue to monitor.
[2019-05-28] MEDS: ALBUTEROL FS 2.5 MG/0.5 ML VIAL.NEB NEB SCH ×2 (00:31→19:30)
[2019-05-28] MEDS: clonazePAM 0.5 MG TABLET PO PRN (03:34)
--- NOTE | 2019-05-28 03:38 | NUR ---
RN medsurg notes Pt is feeling anxious and requesting meds. Administered klonopin 0.5 mg/1 tab/po as ordered for anxiety. Safety precautions is maintained. Will continue to monitor.
--- NOTE | 2019-05-28 07:00 | NUR ---
RN medsurg closing notes Pt is resting in bed comfortably. Pt is alert and orientedX4. Respiration is normal. no SOB. No S/S of distress noted. IV sites RFA# 18 is clean, intact, patent and SL. VS is stable. Routine meds were given as ordered. Kept Pt clean, dry and comfortable. Safety precautions is maintained. Bed at low position, brakes locked, side rails upX3 and call light is within reach. Will endorse to morning nurse for JORDEN.
--- NOTE | 2019-05-28 07:51 | NUR ---
MS RN OPENING NOTES RECEIVED PATIENT IN BED, ASLEEP. PATIENT ON ROOM AIR BREATHING EVENLY WITH NO SIGNS OF DISTRESS OR SOB. RFA SL GAUGE # 18 PRESENT, INTACT AND FLUSHING WELL. SAFETY PRECAUTIONS IN PLACE: BED IN LOW POSITION AND LOCKED, RAILS UP X3, CALL LIGHT WITHIN REACH. WILL CONTINUE TO MONITOR PATIENT.
[2019-05-28 08:00] VITALS: BP 110/65
[2019-05-28] MEDS: LISINOPRIL (10MG) 10 MG TABLET PO SCH (08:37)
[2019-05-28] MEDS: SPIRONOLACTONE 25 MG TABLET PO SCH (08:38)
[2019-05-28] MEDS: METOLAZONE 2.5 MG TABLET PO SCH (08:39)
[2019-05-28] MEDS: ASPIRIN EC 81 MG TABLET.DR PO SCH (08:39)
[2019-05-28] MEDS: CARVEDILOL 3.125 MG TABLET PO SCH ×2 (08:43→17:00)
[2019-05-28] MEDS: DIVALPROEX SODIUM 125 MG CAP.SPRINK PO PRN ×2 (14:20→14:22)
[2019-05-28] MEDS: LORAZEPAM 0.5 MG TABLET PO PRN ×2 (15:16→22:46)
--- NOTE | 2019-05-28 15:21 | NUR ---
MS RN NOTES PATIENT GOT AGITATED AND ANXIOUS. PATIENT ASKED FOR ATIVAN BUT IT HAS BEEN D/C PER MD. PATIENT ALSO STATED THAT HE HAS ALLERGIES TO DEPAKOTE SPRINKLE AND HE REFUSES TO TAKE IT. BEING VERY FRUSTRATED HE STARTED TO SCREAM AND BECAME VERY ARROGANT. MD NOTIFIED. MD ISSUED ONE TIME ORDER OF ATIVAN. MEDICATION ADMINISTERED.
[2019-05-28 16:00] VITALS: BP 105/66
[2019-05-28] MEDS ORDERED: SENNOSIDES 8.6 MG TABLET PO ONE (18:00)
--- NOTE | 2019-05-28 19:00 | NUR ---
RN MS OPENING NOTES RECEIVED PATIENT IN ROOM AWAKE WALKING/PACING NOTED AGITATED COMPLAINING OF IV SITE. NOTED REDNESS, MADE PATIENT AWARE I CAN ASSESS AND REMOVE OR CHANGE IT, PATIENT DOES NOT WANT TO HAVE IT REMOVED AT THIS TIME UNTIL SEEN BY CHARGE NURSE. AWAKE ALERT AND ORIENTED X4, NOTED EASILY AGITATED, RESPIRATIONS EVEN AND UNLABORED WITH EQUAL RISE AND FALL OF CHEST, ORIENTED TO STAFF AND CALL LIGHT AND KEPT WITHIN REACH, FLUIDS OFFERED,SNACK OFFERED AND GIVEN , LINENS CHANGED, ALL NEEDS ATTENDED WILL CONTINUE TO MONITOR.
--- NOTE | 2019-05-28 19:00 | NUR ---
MS RN CLOSING NOTES PATIENT IS IN BED, A/O X4. PATIENT DENIES ANY PAIN AT THIS TIME. NO RESPIRATORY DISTRESS NOTED DURING THE SHIFT. RIGHT NOW PATIENT BREATHING EVENLY WITH NO SIGNS OF SOB. RFA # 18 SL IS PATENT AND INTACT. SAFETY PRECAUTIONS IN PLACE; BED IN LOWEST POSITION AND LOCKED. SIDE RAILS UP X2. CALL LIGHTS WITHIN REACH. WILL ENDORSED TO PULPING MACHINE OPERATOR FOR CONTINUITY OF CARE.
--- NOTE | 2019-05-28 19:23 | NUR ---
MS RN NOTES PATIENT AGITATED AND REQUESTED SENNAKOT AT 5.50 PM. DOSE ADMINISTERED PER RECEIVED ORDER.
[2019-05-28 20:00] VITALS: BP 109/70
--- NOTE | 2019-05-28 20:00 | NUR ---
RN MS NOTES PATIENT AT THIS TIME AGREED TO HAVE IV SITE TO RIGHT FA REMOVED, SKIN CLEANSED AND COVERED, NO S/S OF PUS , SLIGHT RED/PINK COLOR PRESENT WILL CONTINUE TO MONITOR. PILLOWS PROVIDED, SNACKS PROVIDED, ALL NEEDS MET.
--- NOTE | 2019-05-28 20:30 | NUR ---
RN MS NOTES PATIENT AT THIS TIME, AGREED TO HAVE NEW IV SITE INSERTED, LEFT AC #22G SL , NO REDNESS, NO INFILTRATION
[2019-05-28 21:53] VITALS: BP 109/70
[2019-05-28] MEDS: SENNOSIDES 8.6 MG TABLET PO SCH (22:00)
--- NOTE | 2019-05-28 22:10 | NUR ---
RN MS NOTES PATIENT DOES NOT WANT TO TAKE SENNA RECEIVED AN EARLIER DOSE. REFUSED LOVENOX DESPITE EDUCATION.
[2019-05-28] MEDS: ENOXAPARIN SODIUM 40 MG/0.4 ML DISP.SYRIN SQ SCH (22:11)
[2019-05-28] MEDS: GABAPENTIN 300 MG CAPSULE PO SCH (22:14)
--- NOTE | 2019-05-28 22:46 | NUR ---
RN MS NOTED NOTED PATIENT AGITATED /ANXIOUS. REQUESTED FOR SLEEP AID, OFFERED ATIVAN ORDERED. PATIENT AGREED TO TAKE PRN ATIVAN ORDERED.
--- NOTE | 2019-05-29 00:02 | NUR ---
RN MS NOTES CALLED AND SPOKE TO CHARISSE STEIN REGARDING PATIENT REQUEST FOR SLEEP AID. PER HOSPITALIST CHARISSE STEIN NEW ORDER FOR ATIVAN PO 0.5MG X1 ONLY. MADE PATIENT AWARE.
[2019-05-29] MEDS ORDERED: LORAZEPAM 0.5 MG TABLET PO ONE (00:30)
[2019-05-29] MEDS: ALBUTEROL FS 2.5 MG/0.5 ML VIAL.NEB NEB SCH ×4 (00:51→19:30)
--- NOTE | 2019-05-29 06:32 | NUR ---
RN MS CLOSING NOTES PATIENT IN ROOM AWAKE ALERT AND ORIENTED X4, NOTED EASILY AGITATED ,RESPIRATIONS EVEN AND UNLABORED WITH EQUAL RISE AND FALL OF CHEST, DENIES ANY PAIN OR DISCOMFORT AT THIS TIME, IV SITE TO LEFT FA #22G INTACT AND PATENT, NO REDNESS, NO INFILTRATION PRESENT, CALL LIGHT KEPT WITHIN REACH, FLUIDS OFFERED,SNACK OFFERED AND GIVEN REQUESTED BY PT. LINENS CHANGED THIS SHIFT, ALL NEEDS ATTENDED WILL CONTINUE TO MONITOR AND ENDORSE TO NEXT SHIFT.
--- NOTE | 2019-05-29 08:15 | NUR ---
ms rn received on bed, awake,alert,oriented x4,not in any form of distress, respirations even and unlabored,denies pain at this time,all needs attended.
[2019-05-29 08:40] LABS: BASOPHILS # (AUTO) 0.1 /CMM (0.0-0.2); BASOPHILS % (AUTO) 1.2 % (0.0-2.0); EOSINOPHILS % (AUTO) 5.9 % (0.0-6.0); HEMATOCRIT 51 % (39-51); HEMOGLOBIN 16.2 g/dL (13.5-17.5); LYMPHOCYTES # (AUTO) 1.7 /CMM (0.8-4.8); LYMPHOCYTES % (AUTO) 25.8 % (20.0-44.0); MEAN CORPUSCULAR HGB CONC 32 g/dl (31.0-36.0); MEAN CORPUSCULAR VOLUME 79 fL (80-96); MONOCYTES # (AUTO) 0.8 /CMM (0.1-1.30); NEUTROPHILS # (AUTO) 3.5 /CMM (1.8-8.9); NEUTROPHILS % (AUTO) 54.1 % (43.0-81.0); PLATELET COUNT (AUTO) 237 /CMM (150-450); RED BLOOD CELL COUNT(AUTO) 6.45 MIL/uL (4.5-6.0); WHITE BLOOD COUNT (AUTO) 6.5 K/uL (4.3-11.0)
[2019-05-29 09:19] LABS: CALCIUM, SERUM 8.7 mg/dL (8.5-10.1); CREATININE 1.1 mg/dL (0.6-1.3); MAGNESIUM 1.8 mg/dL (1.8-2.4); PHOSPHORUS 3.2 mg/dL (2.5-4.9); POTASSIUM 4.5 mmol/L (3.5-5.1)
--- NOTE | 2019-05-29 09:30 | NUR ---
ms rn breakfast served,due meds given,tolerated well.patient is so mean,disrespectful to staff,very needy patient.
[2019-05-29] MEDS: SPIRONOLACTONE 25 MG TABLET PO SCH (10:10)
[2019-05-29] MEDS: ASPIRIN EC 81 MG TABLET.DR PO SCH (10:10)
[2019-05-29] MEDS: CARVEDILOL 3.125 MG TABLET PO SCH ×2 (10:11→17:14)
[2019-05-29] MEDS: METOLAZONE 2.5 MG TABLET PO SCH (10:11)
[2019-05-29] MEDS: LISINOPRIL (10MG) 10 MG TABLET PO SCH (10:11)
[2019-05-29] MEDS: LEVOTHYROXINE SODIUM 25 MCG TABLET PO SCH (11:00)
--- NOTE | 2019-05-29 15:47 | NUR ---
ms rn sleeping ,all needs attended.
[2019-05-29] MEDS: ONDANSETRON HCL/PF 4 MG/2 ML VIAL IVP PRN (16:33)
[2019-05-29] MEDS: clonazePAM 0.5 MG TABLET PO PRN (17:13)
[2019-05-29] MEDS: oxyCODONE/APAP (5/325 MG) 1 UDTAB TABLET PO PRN ×2 (17:19→22:11)
[2019-05-29 18:11] VITALS: BP 101/66
--- NOTE | 2019-05-29 18:21 | NUR ---
ms rn on bed, so demanding and abusive to nurses.
--- NOTE | 2019-05-29 19:05 | NUR ---
RN MS OPENING NOTES RECEIVED PATIENT IN ROOM AWAKE ALERT AND ORIENTED X4, NOTED EASILY AGITATED ,RESPIRATIONS EVEN AND UNLABORED WITH EQUAL RISE AND FALL OF CHEST, DENIES ANY PAIN OR DISCOMFORT AT THIS TIME, IV SITE TO LEFT FA #22G INTACT AND PATENT, NO REDNESS, NO INFILTRATION PRESENT, CALL LIGHT KEPT WITHIN REACH, FLUIDS OFFERED,SNACK OFFERED, OFFERED TO CHANGE LINENS REFUSED. WILL CONTINUE TO MONITOR AND ATTEND TO NEEDS.
[2019-05-29 20:00] VITALS: BP 103/60
[2019-05-29 20:29] VITALS: BP 103/60
[2019-05-29] MEDS: GABAPENTIN 300 MG CAPSULE PO SCH (21:26)
[2019-05-29] MEDS: SENNOSIDES 8.6 MG TABLET PO SCH (21:26)
--- NOTE | 2019-05-29 22:11 | NUR ---
RN MS NOTES PATIENT COMPLAINT OF PAIN TO GENERALIZED AREA 8/10 REQUESTING FOR PERCOCET. PRN PERCOCET GIVEN ORDERED, VS WNL, WILL CONTINUE TO MONITOR FOR EFFECTIVENESS.
[2019-05-29] MEDS: ENOXAPARIN SODIUM 40 MG/0.4 ML DISP.SYRIN SQ SCH (22:18)
[2019-05-30] MEDS: ALBUTEROL FS 2.5 MG/0.5 ML VIAL.NEB NEB SCH ×2 (01:30→19:30)
--- NOTE | 2019-05-30 06:19 | NUR ---
RN MS CLOSING NOTES PATIENT IN ROOM AWAKE ALERT AND ORIENTED X4, NOTED EASILY AGITATED ,RESPIRATIONS EVEN AND UNLABORED WITH EQUAL RISE AND FALL OF CHEST, DENIES ANY PAIN OR DISCOMFORT AT THIS TIME, IV SITE TO LEFT FA #22G INTACT AND PATENT, NO REDNESS, NO INFILTRATION PRESENT, CALL LIGHT KEPT WITHIN REACH, FLUIDS OFFERED,SNACK OFFERED, THROUGHOUT SHIFT. WILL CONTINUE TO MONITOR AND ATTEND TO NEEDS WILL ENDORSE TO NEXT SHIFT, PERCOCET WAS EFFECTIVE.
[2019-05-30 06:58] LABS: BASOPHILS # (AUTO) 0.1 /CMM (0.0-0.2); BASOPHILS % (AUTO) 1.2 % (0.0-2.0); EOSINOPHILS % (AUTO) 6.9 % (0.0-6.0); HEMATOCRIT 47 % (39-51); LYMPHOCYTES # (AUTO) 1.9 /CMM (0.8-4.8); LYMPHOCYTES % (AUTO) 28.6 % (20.0-44.0); MEAN CORPUSCULAR HGB CONC 32 g/dl (31.0-36.0); MEAN CORPUSCULAR VOLUME 80 fL (80-96); MONOCYTES # (AUTO) 0.9 /CMM (0.1-1.30); MONOCYTES % (AUTO) 13.5 % (2.0-12.0); NEUTROPHILS # (AUTO) 3.3 /CMM (1.8-8.9); NEUTROPHILS % (AUTO) 49.8 % (43.0-81.0); PLATELET COUNT (AUTO) 232 /CMM (150-450); RED BLOOD CELL COUNT(AUTO) 5.94 MIL/uL (4.5-6.0); WHITE BLOOD COUNT (AUTO) 6.7 K/uL (4.3-11.0)
[2019-05-30 07:29] LABS: CREATININE 1.1 mg/dL (0.6-1.3); MAGNESIUM 1.8 mg/dL (1.8-2.4); PHOSPHORUS 3.2 mg/dL (2.5-4.9); POTASSIUM 4.1 mmol/L (3.5-5.1)
[2019-05-30] MEDS: LEVOTHYROXINE SODIUM 25 MCG TABLET PO SCH (07:30)
--- NOTE | 2019-05-30 07:40 | NUR ---
MS/RN OPENING NOTE Patient is resting in bed, A/O x4, showing no signs of acute distres or SOB, saturating >95% on RA. IV line in the LFA is clean and intact s/l. Patient is ambulatory, skin is intact. Patient has no complaints of pain at this time. Bed is in lowest position, side rails x2 in upright position, call light is within reach and patient is aware of how to call for assistance when needed. Will continue with plan of care.
[2019-05-30 08:00] VITALS: BP 80/50
[2019-05-30] MEDS: LISINOPRIL (10MG) 10 MG TABLET PO SCH (08:22)
[2019-05-30] MEDS: ASPIRIN EC 81 MG TABLET.DR PO SCH (08:23)
[2019-05-30] MEDS: CARVEDILOL 3.125 MG TABLET PO SCH ×2 (08:23→16:34)
[2019-05-30] MEDS: SPIRONOLACTONE 25 MG TABLET PO SCH (08:24)
[2019-05-30] MEDS: METOLAZONE 2.5 MG TABLET PO SCH (08:25)
[2019-05-30 12:00] VITALS: BP 113/69
[2019-05-30] MEDS: oxyCODONE/APAP (5/325 MG) 1 UDTAB TABLET PO PRN ×2 (16:34→22:28)
[2019-05-30] MEDS: LORAZEPAM 0.5 MG TABLET PO PRN (16:34)
[2019-05-30] MEDS: GUAIFENESIN/D-METHORPHAN HB 5 ML UDC PO PRN (16:34)
--- NOTE | 2019-05-30 19:19 | NUR ---
MS/RN CLOSING NOTE Patient is resting in bed, A/O x4, showing no signs of acute distres or SOB, saturating >95% on RA. IV line in the LFA is clean and intact s/l. Patient is ambulatory with BRP, skin is intact. All patient needs met, all due meds given. Bed is in lowest position, side rails x2 in upright position, call light is within reach and patient is aware of how to call for assistance when needed. Will endorse to shift manager.
[2019-05-30 19:30] VITALS: BP 100/72
--- NOTE | 2019-05-30 19:48 | NUR ---
MS RN NOTES PATIENT IN BED, WAKE, WATCHING ON TV, ALERT AND ORIENTED X 4. BREATHING EVEN AND UNLABORED ON ROOM AIR. DENIES NO SIGNS OF ACUTE RESPIRATORY DISTRESS, NO ACUTE PAIN. IV ON LAC #22G SL. SHOWS NO SIGNS OF INFILTRATION, NO REDNESS. ITS CLEAN, DRY, AND INTACT. SAFETY PRECAUTIONS IN PLACE. BED IN LOWEST POSITION, LOCKED, AND CALL LIGHT KEPT WITHIN REACH. WILL CONTINUE TO MONITOR.
[2019-05-30 20:00] VITALS: BP 100/72
[2019-05-30] MEDS: GABAPENTIN 300 MG CAPSULE PO SCH (22:03)
[2019-05-30] MEDS: SENNOSIDES 8.6 MG TABLET PO SCH (22:03)
[2019-05-30] MEDS: clonazePAM 0.5 MG TABLET PO PRN (22:28)
--- NOTE | 2019-05-30 22:30 | NUR ---
MS RN NOTES PATIENT COMPLAINING ON PAIN 12/16 AND MEDICATION FOR ANXIETY. GIVEN PERCOCET PRN AND KLONOPIN PRN ON 2227. WILL CONTINUE TO MONITOR.
[2019-05-30] MEDS: ENOXAPARIN SODIUM 40 MG/0.4 ML DISP.SYRIN SQ SCH (23:00)
[2019-05-31] MEDS: ALBUTEROL FS 2.5 MG/0.5 ML VIAL.NEB NEB SCH ×3 (01:17→12:33)
--- NOTE | 2019-05-31 06:48 | NUR ---
MS RN NOTES PATIENT IN BED, ASLEEP, ALERT AND ORIENTED X 4. BREATHING EVEN AND UNLABORED ON ROOM AIR. DENIES ACUTE RESPIRATORY DISTRESS, NO ACUTE PAIN. IV ON LAC #22G SL. SHOWS NO SIGNS OF INFILTRATION, NO REDNESS. ITS CLEAN, DRY, AND INTACT. ALL DUE MEDICATIONS GIVEN. SAFETY PRECAUTIONS IN PLACE. BED IN LOWEST POSITION, LOCKED, AND CALL LIGHT KEPT WITHIN REACH. WILL ENDORSE TO ONCOMING NURSE.
[2019-05-31] MEDS: LEVOTHYROXINE SODIUM 25 MCG TABLET PO SCH (07:30)
[2019-05-31 08:00] VITALS: BP 128/66
[2019-05-31] MEDS: METOLAZONE 2.5 MG TABLET PO SCH (08:29)
[2019-05-31] MEDS: SPIRONOLACTONE 25 MG TABLET PO SCH (08:29)
[2019-05-31] MEDS: CARVEDILOL 3.125 MG TABLET PO SCH ×2 (08:29→16:40)
[2019-05-31] MEDS: LISINOPRIL (10MG) 10 MG TABLET PO SCH (08:29)
[2019-05-31] MEDS: ASPIRIN EC 81 MG TABLET.DR PO SCH (08:29)
[2019-05-31] MEDS: oxyCODONE/APAP (5/325 MG) 1 UDTAB TABLET PO PRN ×2 (13:59→18:24)
[2019-05-31] MEDS: LORAZEPAM 0.5 MG TABLET PO PRN (15:37)
[2019-05-31 16:00] VITALS: BP 119/70
[2019-05-31 17:00] VITALS: BP 103/60
--- NOTE | 2019-05-31 18:47 | NUR ---
MS/RN CLOSING NOTE Patient is resting in bed, A/O x4, showing no signs of acute distress or SOB, patient stated he feels dizzy at 1640, BP is 96/64, GA 93, O2 sat 99% on RA. Elevated legs and retook BP after 10 minutes -- 103/59 GA 88, stating he doesn't feel dizzy. MS is aware. IV line in the LFA is clean and intact s/l. Patient is ambulatory, skin is intact. Patient is requesting for stronger pain medication, notified MD and stated she will only give Ibuprofen and Tylenol since patient is experiencing low BP and dizziness. Bed is in lowest position, side rails x2 in upright position, call light is within reach and patient is aware of how to call for assistance when needed. Will continue with plan of care.
[2019-05-31] MEDS ORDERED: IBUPROFEN 400 MG TABLET PO PRN (19:00)
[2019-05-31 19:30] VITALS: BP 109/52
--- NOTE | 2019-05-31 19:34 | NUR ---
MS RN NOTES PATIENT AWAKE, WALKING AROUND UNIT. ALERT AND ORIENTED X 4. BREATHING EVEN AND UNLABORED ON ROOM AIR. SHOWS NO SIGNS OF CAUTE RESPIRATORY DISTRESS, NO ACUTE PAIN. IV ON LAC 22G SL, SHOWS NO SIGNS OF ACUTE RESPIRATORY DISTRESS, NO ACUTE PAIN, AND CLEAN DRY INTACT. SAFETY PRECAUTIONS IN PLACE. BED IN LOWEST POSITION, LOCKED, AND CALL LIGHT KEPT WITHIN REACH.
[2019-05-31 21:32] VITALS: BP 109/52
[2019-05-31] MEDS: SENNOSIDES 8.6 MG TABLET PO SCH (22:45)
[2019-05-31] MEDS: GABAPENTIN 300 MG CAPSULE PO SCH (22:45)
[2019-05-31] MEDS: ENOXAPARIN SODIUM 40 MG/0.4 ML DISP.SYRIN SQ SCH (23:00)
[2019-05-31] MEDS: clonazePAM 0.5 MG TABLET PO PRN (23:01)
[2019-06-01] MEDS: ALBUTEROL FS 2.5 MG/0.5 ML VIAL.NEB NEB SCH ×3 (05:43→19:30)
[2019-06-01] MEDS: oxyCODONE/APAP (5/325 MG) 1 UDTAB TABLET PO PRN ×2 (06:16→13:17)
--- NOTE | 2019-06-01 07:10 | NUR ---
MS RN NOTES PATIENT IN BED, ASLEEP. ALERT AND ORIENTED X 4. BREATHING EVEN AND UNLABORED ON ROOM AIR. SHOWS NO SIGNS OF ACUTE RESPIRATORY DISTRESS, NO ACUTE PAIN. IV ON LAC 22G SL, SHOWS NO INFILTRATION, NO REDNESS AND CLEAN DRY INTACT. ALL DUE MEDICATIONS GIVEN. SAFETY PRECAUTIONS IN PLACE. BED IN LOWEST POSITION, LOCKED, AND CALL LIGHT KEPT WITHIN REACH. WILL ENDORSE TO ONCOMING NURSE.
[2019-06-01 08:00] VITALS: BP 106/70
[2019-06-01] MEDS: ASPIRIN EC 81 MG TABLET.DR PO SCH (08:50)
[2019-06-01] MEDS: LEVOTHYROXINE SODIUM 25 MCG TABLET PO SCH (08:50)
[2019-06-01] MEDS: METOLAZONE 2.5 MG TABLET PO SCH (08:51)
[2019-06-01] MEDS: CARVEDILOL 3.125 MG TABLET PO SCH ×2 (08:55→16:56)
[2019-06-01] MEDS: LISINOPRIL (10MG) 10 MG TABLET PO SCH (08:55)
[2019-06-01] MEDS: SPIRONOLACTONE 25 MG TABLET PO SCH (08:56)
[2019-06-01] MEDS ORDERED: BUMETANIDE INJ 8 MG in IV NS 0.9% 48 ML IV ONE (10:00)
--- NOTE | 2019-06-01 15:20 | NUR ---
MS/RN NOTE THE PATIENT STATED THAT HIS YELLOW COLORED RING WAS TAKEN AWAY WITH LUNCH TRAY WITHOUT HIS PERMISSION. AFTER LOOKING AT THE BELONGING LIST AND TALKING TO THE PATIENT THE PATIENT STATED THAT THERE WAS NO RING, HE DID NOT HAVE RING WITH HIM AND THERE IS NOTHING TO WORRY ABOUT.
--- NOTE | 2019-06-01 15:38 | NUR ---
MS/RN NOTE DR RUVALCABA IS MADE AWARE THAT THE PATIENT HAS COMPLIANT OF TOOTHACHE ON LEFT UPPER TOOTH IN THE BACK. RECEIVED ORDER OF ORAJEL Q8HR PRN. THE ORDER IS READ BACK, VERIFIED. NOTED AND CARRIED OUT.
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
[2019-06-01 16:00] VITALS: BP 108/69
[2019-06-01] MEDS ORDERED: BENZOCAINE DENTAL GEL 7 GM TUBE MM PRN (16:00)
[2019-06-01] MEDS ORDERED: BENZOCAINE DENTAL GEL 7.5% 9.9 GM TUBE MM PRN (16:00)
[2019-06-01] MEDS: LORAZEPAM 0.5 MG TABLET PO PRN (16:46)
--- NOTE | 2019-06-01 18:28 | NUR ---
MS/RN NOTE THE PATIENT ALERT AND ORIENTED X4. IN ROOM AIR AND SATURATION IS AT 98%. DENIES SOB. RESPIRATION REGULAR AND UNLABORED. DENIES PAIN AT THIS TIME. THE PATIENT IN NO APPARENT DISTRESS. RFA G 22 PATENT AND SALINE LOCKED. BED LOW AND LOCKED. SIDE RAILS UP X2. CALL LIGHT WITHIN REACH. WILL ENDORSE TO FASHION MARKETER.
--- NOTE | 2019-06-01 19:30 | NUR ---
MS RN OPENING NOTES PATIENT AWAKE AND RESTING IN BED UPON ARRIVAL. A/O X4. ON ROOM AIR. NO COMPLAINTS OF SOB OR PAIN AT THIS TIME. PATIENT ABLE TO VERBALIZE NEEDS. IV PRESENT ON RIGHT FOREARM, SIZE 22, INTACT & PATENT, HEP LOCKED. BED LOCKED, SIDE RAILS X2, SEMI-OLIVARES'S POSITION, CALL LIGHT WITHIN REACH. WILL CONTINUE TO MONITOR.
[2019-06-01 20:00] VITALS: BP 109/64
[2019-06-01 20:47] VITALS: BP 109/64
[2019-06-01] MEDS: SENNOSIDES 8.6 MG TABLET PO SCH (21:08)
[2019-06-01] MEDS: GABAPENTIN 300 MG CAPSULE PO SCH (21:08)
[2019-06-01] MEDS: ENOXAPARIN SODIUM 40 MG/0.4 ML DISP.SYRIN SQ SCH (22:51)
[2019-06-02] MEDS: ONDANSETRON HCL/PF 4 MG/2 ML VIAL IVP PRN (00:08)
[2019-06-02] MEDS: oxyCODONE/APAP (5/325 MG) 1 UDTAB TABLET PO PRN (00:35)
--- NOTE | 2019-06-02 00:35 | NUR ---
MS RN NOTES PATIENT COMPLAINING OF SHARP TOOTH/GUM PAIN. PER PATIENT'S REQUEST, ADMINISTERED PRN PERCOCET. VITAL SIGNS WNL. CALL LIGHT WITHIN REACH. WILL CONTINUE TO MONITOR EFFECTIVENESS OF PAIN MEDICATION.
[2019-06-02] MEDS: ALBUTEROL FS 2.5 MG/0.5 ML VIAL.NEB NEB SCH ×3 (01:05→11:09)
--- NOTE | 2019-06-02 07:39 | NUR ---
MS RN CLOSING NOTES PATIENT SLEEPING IN BED, EASY TO AWAKEN. A/O X4. ON ROOM AIR. NO COMPLAINTS OF SOB OR PAIN AT THIS TIME. IV PRESENT ON RIGHT FOREARM, SIZE 22, HEP LOCKED. BED LOCKED, SIDE RAILS X2, CALL LIGHT WITHIN REACH. WILL ENDORSE TO DAY SHIFT NURSE TO FOLLOW PLAN OF CARE.
--- NOTE | 2019-06-02 07:41 | NUR ---
PT NONCOMPLIANT, VERBALLY ABUSIVE BEFORE RT EVEN INTRODUCED HIMSELF AND TREATING PT IN THE OTHER BED. I MADE ADJUSTMENTS TO THE FLOWMETERS BETWEEN TWO PATIENTS, SWITCHING CANNULAS TO THE CORRECT FLOWMETER AND ADJUSTING FLOWS. PT YELLED PROFANITIES AN CLAIMED THAT I WAS DISCONNECTING HIS OXYGEN, WHILE HE WAS NOT WEARING O2 AT ALL, AND HIS CANNULA WAS IN FACT ON THE BED. I EXPLAINED WHAT I WAS DOING TO THE PATIENT AND REQUESTED NOT TO USE PROFANITIES AND NOT TO BE SPOKEN IN SUCH MANNER, PT EXPLODED INTO ANOTHER RANT, USING EVEN BIGGER INSULTS. AT THIS TIME, I CHOSE TO STEP OUT OF THE ROOM AND REPORTED THIS TO DR. ASHLEY.
[2019-06-02 07:47] LABS: BASOPHILS # (AUTO) 0.1 /CMM (0.0-0.2); BASOPHILS % (AUTO) 1.5 % (0.0-2.0); EOSINOPHILS % (AUTO) 6.4 % (0.0-6.0); HEMATOCRIT 42 % (39-51); HEMOGLOBIN 13.3 g/dL (13.5-17.5); LYMPHOCYTES % (AUTO) 32.5 % (20.0-44.0); MEAN CORPUSCULAR HGB CONC 32 g/dl (31.0-36.0); MEAN CORPUSCULAR VOLUME 80 fL (80-96); MONOCYTES # (AUTO) 0.9 /CMM (0.1-1.30); MONOCYTES % (AUTO) 14.4 % (2.0-12.0); NEUTROPHILS # (AUTO) 2.8 /CMM (1.8-8.9); NEUTROPHILS % (AUTO) 45.2 % (43.0-81.0); PLATELET COUNT (AUTO) 206 /CMM (150-450); RED BLOOD CELL COUNT(AUTO) 5.22 MIL/uL (4.5-6.0); WHITE BLOOD COUNT (AUTO) 6.2 K/uL (4.3-11.0)
[2019-06-02 07:53] LABS: ALBUMIN 2.9 g/dL (3.4-5.0); BILIRUBIN,TOTAL 0.9 mg/dL (0.2-1.0); CALCIUM, SERUM 8.7 mg/dL (8.5-10.1); CREATININE 1.3 mg/dL (0.6-1.3); MAGNESIUM 1.7 mg/dL (1.8-2.4); PHOSPHORUS 5.3 mg/dL (2.5-4.9); TOTAL PROTEIN, SERUM 6.6 g/dL (6.4-8.2)
[2019-06-02 08:00] VITALS: BP 104/77
--- NOTE | 2019-06-02 08:02 | NUR ---
MS RN OPENING NOTES RECEIVED PATIENT IN BED, AWAKE, A/O X4 COMPLAINING ABOUT DIFFERENT THINGS. PATIENT BREATHING ON ROOM AIR. BREATHING UNLABORED AND EVEN. NO S/S OF SOB. DENIES PAIN AT THIS TIME. RFA GAUGE # 22 PRESENT AND INTACT. SAFETY PRECAUTIONS IN PLACE; BED IN LOW POSITION AND LOCKED, RAILS UP X2, CALL LIGHT WITHIN REACH. WILL CONTINUE TO MONITOR PATIENT.
[2019-06-02] MEDS: METOLAZONE 2.5 MG TABLET PO SCH (08:31)
[2019-06-02] MEDS: ASPIRIN EC 81 MG TABLET.DR PO SCH (08:32)
[2019-06-02] MEDS: LEVOTHYROXINE SODIUM 25 MCG TABLET PO SCH (08:32)
[2019-06-02] MEDS: CARVEDILOL 3.125 MG TABLET PO SCH ×2 (08:34→17:00)
[2019-06-02] MEDS: SPIRONOLACTONE 25 MG TABLET PO SCH (08:34)
[2019-06-02] MEDS: LISINOPRIL (10MG) 10 MG TABLET PO SCH (08:35)
[2019-06-02] MEDS: Magnesium 1GM/D5W 100ML PREMIX 100 ML IV SCH ×2 (11:06→12:46)
[2019-06-02 16:00] VITALS: BP 97/58
[2019-06-02] MEDS: clonazePAM 0.5 MG TABLET PO PRN (16:50)
[2019-06-02] MEDS: LORAZEPAM 0.5 MG TABLET PO PRN (19:06)
--- NOTE | 2019-06-02 19:30 | NUR ---
MS RN OPENING NOTES PATIENT AWAKE AND SITTING IN CHAIR UPON ARRIVAL. A/OX4. ON ROOM AIR. NO COMPLAINTS OF SOB OR PAIN AT THIS TIME. IV PRESENT ON RIGHT FOREARM, SIZE 22, INTACT & PATENT, HEP LOCKED. BED LOCKED, SIDE RAILS X2, CALL LIGHT WITHIN REACH. WILL CONTINUE TO MONITOR.
--- NOTE | 2019-06-02 19:38 | NUR ---
MS RN CLOSING NOTES PATIENT IN BED, AWAKE, A/O X4 AWAITING DISCHARGE. PATIENT BREATHING ON ROOM AIR. BREATHING UNLABORED AND EVEN. NO S/S OF SOB. DENIES PAIN AT THIS TIME. ALL NEEDS ATTENDED TO. SAFETY PRECAUTIONS IN PLACE; BED IN LOW POSITION AND LOCKED, RAILS UP X2, CALL LIGHT WITHIN REACH. WILL ENDORSE TO WELDER OXYHYDROGEN NURSE.
[2019-06-02 20:00] VITALS: BP 106/62
--- NOTE | 2019-06-02 20:45 | NUR ---
MS RN NOTES REPORT GIVEN TO SHANTHI KAUR AT [facility] FOR TRANSFER.
--- NOTE | 2019-06-02 21:30 | NUR ---
MS [employer] SAL[employer] ASSOCIATE NOTES PATIENT TRANSFERRED TO [facility]. PATIENT A/OX4. ON ROOM AIR. NO COMPLAINTS OF SOB OR PAIN. IV ON RIGHT FOREARM, SIZE 22, DISLODGED. NEW IV WAS INSERTED ON LEFT FOREARM, SIZE 20, INTACT & PATENT, HEP LOCKED. BELONGINGS LIST CHECKED AND SIGNED. TRANSFER PAPERS SIGNED AND PLACED IN CHART. VITAL SIGNS STABLE - BP: 106/62 HR: 85 RR: 18 TEMP: 97.5 SPO2: 99.
== END 2019-06-02 21:30 | disposition short-term general hospital (02) | DRG 194 ==
LOC: ER 18:16 → TELE 22:10 → MED 05-26 12:30
PROVIDERS: ADMIT Nurse Practitioner Acute Care
DX: I11.0 Hypertensive heart disease with heart failure (principal); I21.A1 Myocardial infarction type 2; N17.9 Acute kidney failure, unspecified; I42.0 Dilated cardiomyopathy; I50.23 Acute on chronic systolic (congestive) heart failure; J44.9 Chronic obstructive pulmonary disease, unspecified; F41.9 Anxiety disorder, unspecified; E87.6 Hypokalemia; R74.0 Nonspecific elevation of levels of transaminase and lactic acid dehydrogenase [LDH]; G89.29 Other chronic pain; M54.5 Low back pain; F17.210 Nicotine dependence, cigarettes, uncomplicated; F15.10 Other stimulant abuse, uncomplicated; F39 Unspecified mood [affective] disorder; Z91.19 Patient's noncompliance with other medical treatment and regimen; Z59.0 Homelessness; F12.10 Cannabis abuse, uncomplicated
CPT/HCPCS: 36415; 71045-TC; 80048-TC; 80053-TC; 80061-TC; 80076-TC; 80305; 83735-TC; 83880; 84100-TC; 84439-TC; 84443-TC; 84484-TC; 85025-TC; 87081-TC; 93307-TC; A4216; A6403; G0378; J1650; J1940; J2405; J3475; J3490; J7042; J7050; J7060